=== PATIENT | female | born 1945 | race Caucasian/White ===

== ENCOUNTER → 2016-05-29 | Outpatient (CLI) | payer OTHER | LOC: FIMAGING 13:45 | PROVIDERS: ATTEND Internal Medicine | DX: R93.8 Abnormal findings on diagnostic imaging of other specified body structures (principal); I70.0 Atherosclerosis of aorta; I25.10 Atherosclerotic heart disease of native coronary artery without angina pectoris ==

== ENCOUNTER → 2016-06-18 | Outpatient (CLI) | payer OTHER | LOC: FIMAGING 12:06 | DX: Z12.31 Encounter for screening mammogram for malignant neoplasm of breast (principal) | CPT/HCPCS: G0202 ==

== ENCOUNTER → 2016-12-06 | Outpatient (CLI) | payer OTHER | LOC: FIMAGING 14:49 | PROVIDERS: ATTEND Orthopaedic Surgery | DX: M19.011 Primary osteoarthritis, right shoulder (principal); M19.012 Primary osteoarthritis, left shoulder; M24.011 Loose body in right shoulder ==

== ENCOUNTER 2017-01-14 11:01 | Day surgery (SDC) | payer OTHER ==
[~2017-01-14 11:01] MED LIST: CLINDAMYCIN 900 MG/DEXTROSE 50 ML IV ONE
[2017-01-14] MEDS ORDERED: LR 1,000 ML IV ONE (11:06)
[2017-01-14] MEDS ORDERED: LIDOCAINE 1% 2 ML INJ ID PRN (11:06)
[2017-01-14] MEDS ORDERED: BUPIVACAINE 0.5% 30 ML SDV ONE (11:54)
[2017-01-14] MEDS ORDERED: fentaNYL 100 MCG/2 ML INJ ONE ×2 (11:54→12:46)
[2017-01-14] MEDS ORDERED: CLINDAMYCIN 600 MG/DEXTROSE/50 ML BAG IV ONE (11:59)
[2017-01-14] MEDS ORDERED: ROPIVACAINE HCL 20 MG/10 ML INJ EP ONE (11:59)
[2017-01-14] MEDS ORDERED: CLINDAMYCIN 900 MG/DEXTROSE/50 ML BAG IV ONE (12:00)
--- NOTE | 2017-01-14 12:02 | PDANEPAE ---
ANE History of Present Illness L shoulder OA ANE Past Medical History - Cardiovascular History Hx Hypertension: No Hx Arrhythmias: No Hx Chest Pain: No Hx Coronary Artery / Peripheral Vascular Disease: No Hx CHF / Valvular Disease: No Hx Palpitations: No - Pulmonary History Hx COPD: No Hx Asthma/Reactive Airway Disease: No Hx Recent Upper Respiratory Infection: No Hx Oxygen in Use at Home: No Hx Sleep Apnea: No Sleep Apnea Screening Result - Last Documented: Negative Pulmonary History Comment: prev use of O2 following proc in 2010 - Neurologic History Hx Cerebrovascular Accident: No Hx Seizures: No Hx Dementia: No - Endocrine History Hx Diabetes: No - Renal History Hx Renal Disorders: No - Liver History Hx Hepatic Disorders: No - Neurological & Psychiatric Hx Hx Neurological and Psychiatric Disorders: Yes Neurological / Psychiatric History Comment: sciatica - Cancer History Hx Cancer: Yes Cancer History Comment: endometrial - Congenital Disorder History Hx Congenital Disorders: No - GI History Hx Gastrointestinal Disorders: Yes Gastrointestinal History Comment: ibs - Other Health History Other Health History: bruises easily - Chronic Pain History Chronic Pain: Yes (bila sciatic nerve pain) - Surgical History Prior Surgeries: hysterectomy 2010 ANE Review of Systems Review of Systems: - Exercise capacity Exercise capacity: >=4 METS METS (RN): 4 METS - Systems Gastrointestinal: Reports: vomitting (current gastritis) Neurological: Reports: paresthesia (bilateral hand numbness) ANE Patient History - Allergies Allergies/Adverse Reactions: butalbital [From Fiorinal] Allergy (Intermediate, Verified 11/28/10 11:06) ELEVATED B/P/ "DRUNK FEELING" caffeine [From Fiorinal] Allergy (Intermediate, Verified 11/28/10 11:06) ELEVATED B/P/ "DRUNK FEELING" olive oil [[place] Oil] Allergy (Intermediate, Verified 11/28/10 11:06) Diarrhea amoxicillin Allergy (Mild, Verified 01/02/17 12:41) Hives ciprofloxacin [From Cipro] Allergy (Mild, Verified 12/31/16 19:07) Hives ciprofloxacin HCl [From Cipro] Allergy (Mild, Verified 12/31/16 19:07) Hives Penicillins Allergy (Unknown, Verified 12/31/16 19:08) Hives atorvastatin Allergy (Verified 12/31/16 19:08) Other-Enter Comments simvastatin [From Zocor] Allergy (Verified 12/31/16 19:07) Other-Enter Comments COOKED TOMATOES Allergy (Intermediate, Uncoded 11/28/10 11:06) Diarrhea ENVIRONMENTAL Allergy (Intermediate, Uncoded 11/28/10 11:06) RUNNY NOSE/NASAL CONGESTION BANDAGES Allergy (Mild, Uncoded 11/28/10 11:06) Rash - Home Medications Home Medications: Acetaminophen [Tylenol ES 500 mg (*)] 500 mg PO Q4H 12/31/16 [Last Taken ] Ascorbic Acid [Vitamin C 500 mg (*)] 500 mg PO HS 12/31/16 [Last Taken 01/07/17] Aspirin [Aspirin 81mg (*)] 81 mg PO DAILY 12/31/16 [Last Taken 01/07/17] Cholecalciferol (Vitamin D3) [Vitamin D3] 7 drops PO Q7D 12/31/16 [Last Taken ] Cyanocobalamin [Vitamin B12 (*)] 1,000 mcg PO Q7D 12/31/16 [Last Taken 01/05/17] Estradiol [Estradiol 0.5 MG (RX)] 0.25 mg PO DAILY 12/31/16 [Last Taken 01/14/17 ] FEXOFENADINE HCL 180 mg PO BID 12/31/16 [Last Taken 01/13/17] Gluc Stevens/Chondro Stevens A/Vit C/Mn [Glucosamine 1,500 Complex Cap] 1 each PO BID [Last Taken 01/07/17] Herbals/Supplements -Info Only 1 ea PO DAILY 12/31/16 [Last Taken 01/07/17] Ibuprofen [Motrin (*)] 200 mg PO Q4H 12/31/16 [Last Taken 01/07/17] Multivitamins [Multivitamin (*)] 0.5 each PO BID 12/31/16 [Last Taken 01/07/17] Naproxen Sodium [Aleve 220 MG (*)] 220 mg PO DAILY PRN 12/31/16 [Last Taken 08/18] [place]-3 Fatty Acids [Fish Oil 1000 mg (*)] 2,000 mg PO BID 12/31/16 [Last Taken 01/07/17] Vitamin E Acetate [VITAMIN E] 400 unit PO BID 12/31/16 [Last Taken 01/07/17] - NPO status NPO Status: no food or drink >8 hours - Anes Hx Anes Hx: no prior problems - Smoking Hx Smoking Status: Former smoker - Alcohol Use Alcohol Use: None - Family Anes Hx Family Hx Anesthesia Complications: none ANE Labs/Vital Signs - Vital Signs Vital Signs: reviewed preoperatively; see RN documention for details Height: 149.86 cm Weight: 55.338 kg ANE Physical Exam - Airway Mallampati Score: Class 2 - Pulmonary Pulmonary: no respiratory distress - Cardiovascular Cardiovascular: regular rate and rhythym - ASA Status ASA Status: II ANE Anesthesia Plan Anesthesia Plan: general endotracheal anesthesia Regional Anesthesia: interscalene BP NB
--- NOTE | 2017-01-14 12:20 | PDGENHP ---
History and Physical History and Physical: see chart notes/office notes L shoulder end stage OA CTAB RRR L shoulder identified at bedside IS block IS catheter requested at bedside Plan for total shoulder Left. RBEA. consented. Dr Day
[2017-01-14] MEDS ORDERED: MIDAZOLAM 2 MG/2 ML VIAL ONE (12:31)
[2017-01-14] MEDS ORDERED: MIDAZOLAM 2 MG/2 ML VIAL IVP ONE (12:42)
[2017-01-14] MEDS ORDERED: PROPOFOL 200 MG/20 ML VIAL ONE (12:46)
[2017-01-14] MEDS ORDERED: fentaNYL 100 MCG/2 ML INJ IVP PRN (14:59)
[2017-01-14] MEDS ORDERED: NALOXONE HCL 0.4 MG/ML INJ IVP PRN (14:59)
[2017-01-14] MEDS ORDERED: ALBUTEROL 3 ML DEYVIAL IH PRN (14:59)
[2017-01-14] MEDS ORDERED: HYDROmorphONE/DILAUDID 1 MG/ML INJ IVP PRN (14:59)
[2017-01-14] MEDS ORDERED: ROPIVACAINE 0.2% 1,100 MG in PUMP SET 1 EA NB SCH (15:00)
[2017-01-14] MEDS ORDERED: SUGAMMADEX SODIUM 200 MG/2 ML VIAL IVP ONE (15:07)
[2017-01-14] MEDS ORDERED: ONDANSETRON 4 MG/2 ML VIAL ONE (15:07)
--- NOTE | 2017-01-14 15:32 | POSTOPPROG ---
Post Op Note Date of Operation: 01/14/17 Surgeon: Caesar Woodard Anesthesia: GET(General Endotracheal) Pre-op Diagnosis: left shoulder arthritis Post-op Diagnosis: left shoulder arthritis Indication: pain Procedure: left total shoulder arthroplasty Findings: left shoulder arthritis Inf/Abcess present in the surg proc area at time of surgery?: No EBL: 50-100 (100) Complications: none
[2017-01-14] MEDS ORDERED: ACETAMINOPHEN 325 MG TAB PO PRN (15:46)
[2017-01-14] MEDS ORDERED: ONDANSETRON 4 MG/2 ML VIAL IVP PRN (15:46)
[2017-01-14] MEDS ORDERED: OXYCODONE/APAP 5/325 TAB PO PRN (15:46)
[2017-01-14] MEDS ORDERED: HYDROCODONE/APAP 5/325 TAB PO PRN (15:46)
[2017-01-14 15:54] VITALS: TEMP 98.2
[2017-01-14 17:17] VITALS: PULSE 95; RESP 14
--- NOTE | 2017-01-14 19:37 | PDFACE2FAC ---
Face to Face Encounter 1. I certify that this patient is under my care and that I, or a nurse practitioner or physician's assistant executive housekeeper working with me, had a [id number] encounter that meets the physician [id number]-hl-rcep encounter requirements with this patient on 01/14/17. 2. I certify that based on my findings, the following services are medically necessary home health services: Home Oxygen therapy 3. The medical condition and clinical findings that support the need for specialized skills, knowledge and judgement of the above services are: [hypoxia] 4. I certify this patient is homebound* because [the patient's condition restricts their ability to leave their home except with the assistance of another individual or the aid of a supportive device.] John Randle MD I certify that this patient is confined to his/her home and needs intermittent snf care, physical and/or speech therapy. This patient is under my care and I have authorized home health services. * Homebound is defined by Medicare as follows: absences from home require considerable and tacking effort and or for medical reasons or restorationism services or are infrequent or of short duration when for other reasons*.
--- NOTE | 2017-01-14 19:41 | PDHOMEO2F ---
Home Oxygen Face to Face Home Orders: I certify that a physician or a nurse practitioner or physician's assistant sales center manager has had a [id number] encounter with this patient on the date of this order due to the diagnosis listed, which relates to the primary reason the patient requires home oxygen. Alternative treatments have been tried, or considered, and deemed ineffective. It is anticipated that supplemental oxygen will result in improvement with treatment. 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 Length of time home oxygen needed: 1 week
[2017-01-14] MEDS ORDERED: DOCUSATE SODIUM 100 MG CAP PO SCH (21:00)
[2017-01-14 21:42] VITALS: BP 138/94
[2017-01-14 22:41] VITALS: O2SAT 95
--- NOTE | 2017-01-15 05:09 | GOP ---
[f rep st] OPERATIVE REPORT DATE OF OPERATION: 01/14/2017 SURGEON: Kathy Day MD PREOPERATIVE DIAGNOSIS: Left shoulder osteoarthritis. POSTOPERATIVE DIAGNOSIS: 1. Left shoulder osteoarthritis. 2. Loose body. 3. Biceps tendinopathy. PROCEDURE PERFORMED: 1. Open left total shoulder replacement. 2. Open loose body removal. 3. Subpectoral biceps or open biceps tenodesis. FINDINGS: ESTIMATED BLOOD LOSS: Minimal. Total surgical time was 2 hours. INDICATIONS: The patient is a 71-year-old female with end-stage left shoulder osteoarthritis. Cuff intact. Large goat's monroe osteophyte loose body in the subscap recess. Patient elects for operativ e intervention after failing conservative management for end-stage arthritis of the left shoulder. The patient was identified in the preoperative holding area. Consent, laterality and preoperative an tibiotics were confirmed delivered. All questions were answered. Her significant other was at the [facility]. Interscalene block and catheter was placed. Interscalene catheter was placed by Anesthesia. Patient brought into the operating room. General anesthesia. A semi lazy beach chair position. All extremities well padded. 30 degree head of bed. The left upper extremity was prepped and draped in usual sterile fashion. Ioban draping. Standard deltopectoral approach. Coracoid to the humeral sh aft. Cephalic vein was found medially. This was retracted laterally. The conjoined tendon was iden tified on the coracoid. The subdeltoid adhesions were taken down. The rotator cuff looked intact. There was a large thickening of the tenosynovium of the biceps groove. We excised this. We found th e biceps. We did a 1 cm Flores release. We tenodesed the biceps to the remainder of the Flores tendon. We did a biceps tenotomy. We found the lesser tuberosity. She had a nice healthy subscap. We palp ated the axillary nerve underneath the subscapularis. We did a lesser tuberosity osteotomy. We free d up the capsule in the subscap. With progressive external rotation, we delivered the humeral head e nface. We debrided a large goat's monroe osteophyte. A large 1 cm loose body popped free as we were doing this. We removed this. We found the anatomic neck. We preserved the rotator cuff with lulu Tate. Did a freehand osteotomy of the humeral head at about 135 degrees. We treated the swathi l side. We used a rongeur central canal finer, reamed up to a 6. She was fairly small and then had broached up to 6 and placed a humeral head protector. The arm was taken out of the [place] arm hol luz and placed on a padded Walker. We used a Fukuda retractor. Completed the inferior and posterior c apsular releases. Placed a Bankart retractor did a complete labrectomy. The glenoid looked fairly s mall. We had a Darach retractor to protect the axillary nerve. We placed a center pin guide hole. Over-reamed with a central hole. I placed a guide. The bone was very healthy superiorly, and anteri tara and posteriorly it was a little soft. We did use a punch. Trialed with a small glenoid. There was a small glenoid posterior inferior rim fracture off the posterior aspect of the lower smiley fac e, but it looked stable on the inferior cortical margin. We trialed. It remained a stable fracture. We thought that this 1-2 mm propagation would be okay with the cement as 90% of the posterior gleno id looked intact at the mid portion and superior portion. We cemented in the real. Bone grafted the central PEG hole. It was nice and stable. Prior to preparing the glenoid, we did ream to a flat gl enoid with a small glenoid reamer. We then placed the arm in a [place] gale. Deliver the humeral head. The osteotomy looked fresh. We placed 2 drill holes in the bicipital groove. We passed sutures through these, the lateral port ion and we had 4 medial sutures. We passed the horizontal mattress stitches through the subscapulari s and did an Arthrex subscap technique for mattress stitches. We tied off the tops, tied off the bot toms, tied off crisscross and then tied medially. The arm was placed in neutral, had about 40% to 50 % posterior Shuck, well centralized with equal excursion. We placed 2 edcdju-bi-awuqc stitches in th e rotator interval. #2 FiberWire. The wound was copiously washed out with 500 cc of warm normal greta ine. We used a running PDS 2-0, PDS 3-0, Monocryl, and then a 3-0 Prolene. Mastisol, Steri-Strips, Xeroform, and Mepilex dressing applied. Sling applied. DESCRIPTION OF PROCEDURE: CRIMINAL JUDGE: Caesar Woodard PA-C, medically required for positioning of the arm during op en total shoulder and careful retraction of vital neurovascular structures. COMPLICATIONS: None. DISPOSITION: To PACU in stable condition. /[id number]/MODL
== END 2017-01-14 21:30 | disposition home or self-care (01) ==
LOC: F3N 11:01 → FSGY 11:01 → UNDOADMIN 11:01 → EDSTATUS 12:30 → FSGY 21:30
PROVIDERS: ATTEND Orthopaedic Surgery
PROC: 0RRK0J7 Replacement of Left Shoulder Joint with Synthetic Substitute, Glenoid Surface, Open Approach (ICD-10-PCS; principal; 2017-01-14 12:30)
DX: M19.012 Primary osteoarthritis, left shoulder (principal); M24.012 Loose body in left shoulder; M75.22 Bicipital tendinitis, left shoulder
CPT/HCPCS: C1713; J0171; J2250; J2405; J2704; J2795; J3010

== ENCOUNTER → 2017-07-09 | Outpatient (CLI) | payer OTHER | LOC: FIMAGING 13:30 | PROVIDERS: ATTEND Internal Medicine | DX: Z12.31 Encounter for screening mammogram for malignant neoplasm of breast (principal); Z80.3 Family history of malignant neoplasm of breast ==

== ENCOUNTER → 2017-08-12 | Outpatient (CLI) | payer OTHER | LOC: FIMAGING 11:58 | PROVIDERS: ATTEND Internal Medicine | DX: M25.551 Pain in right hip (principal) ==

== ENCOUNTER 2017-09-09 08:15 | Day surgery (SDC) | payer OTHER ==
--- NOTE | 2017-09-08 18:11 | PDGENHP ---
History & Physical Chief Complaint: right shoulder pain History of Present Illness: 72 yo female, presenting today for Right total shoulder arthroplasty and biceps tenodesis by dr. del rio for right shoulder pain and arthritis Pertinent Past, Social, Family History: Allergies: butabital, caffeine, olive oil, amoxicillin, cipro, fiorinal, simvastatin, atorvastatin. meds: estradiol. soc: former smoker, occasional etoh, denies rec drug,. PMH: cancer, arthritis Relevant Physical Exam: 90 deg ff w/ crepitation. 80 deg abduction. no ER lag. strong empty can Assessment & Plan Assessment: 72 yo female with right shoulder pain and arthritis, presenting today for right total shoulder arthroplasty by dr. del rio Plan: right total shoulder arthroplasty
[2017-09-09] MEDS ORDERED: CLINDAMYCIN 900 MG/DEXTROSE 50 ML IV ONE ×3 (08:25→18:00)
[2017-09-09] MEDS ORDERED: LR 1,000 ML IV SCH (08:25)
[2017-09-09] MEDS ORDERED: LIDOCAINE 1% 2 ML INJ ID PRN (09:06)
[2017-09-09] MEDS ORDERED: LIDOCAINE 1% 2 ML INJ ONE (09:07)
[2017-09-09] MEDS ORDERED: ROPIVACAINE HCL 20 MG/10 ML INJ EP ONE (09:13)
[2017-09-09] MEDS ORDERED: EPINEPHrine 1 MG/ML INJ ONE (09:14)
[2017-09-09] MEDS ORDERED: BUPIVACAINE/EPI 0.5% 30 ML SDV ONE (09:43)
[2017-09-09] MEDS ORDERED: fentaNYL 100 MCG/2 ML INJ ONE ×2 (09:56→13:00)
[2017-09-09] MEDS ORDERED: MIDAZOLAM 2 MG/2 ML VIAL ONE (09:57)
[2017-09-09] MEDS ORDERED: PROPOFOL/EMULSION 500 MG/50 ML BOTTLE IV ONE (10:26)
[2017-09-09] MEDS ORDERED: PHENYLEPHRINE HCL 100 MCG/ML SYR ONE (10:39)
[2017-09-09] MEDS ORDERED: ONDANSETRON 4 MG/2 ML VIAL ONE ×2 (10:47→13:58)
[2017-09-09] MEDS ORDERED: DEXAMETHASONE 4 MG/ML VIAL ONE ×2 (10:47)
[2017-09-09] MEDS ORDERED: fentaNYL 100 MCG/2 ML INJ IVP PRN (10:55)
[2017-09-09] MEDS ORDERED: HYDROmorphONE/DILAUDID 1 MG/ML INJ IVP PRN (10:55)
[2017-09-09] MEDS ORDERED: ONDANSETRON 4 MG/2 ML VIAL IVP PRN ×2 (10:55→13:29)
[2017-09-09] MEDS ORDERED: DEXAMETHASONE 4 MG/ML VIAL IVP PRN (10:55)
[2017-09-09] MEDS ORDERED: ALBUTEROL 3 ML DEYVIAL IH PRN (10:55)
[2017-09-09] MEDS ORDERED: PROMETHAZINE HCL 25 MG/ML INJ IVP PRN ×2 (10:55→13:29)
[2017-09-09] MEDS ORDERED: DIAZEPAM 5 MG/ML 1 ML SYR IVP PRN (10:55)
[2017-09-09] MEDS ORDERED: NALOXONE HCL 0.4 MG/ML INJ IVP PRN (10:55)
--- NOTE | 2017-09-09 10:55 | PDANEPAE ---
ANE History of Present Illness here for L Total shoulder ANE Past Medical History - Cardiovascular History Hx Hypertension: No Hx Arrhythmias: No Hx Chest Pain: No Hx Coronary Artery / Peripheral Vascular Disease: No Hx CHF / Valvular Disease: No Hx Palpitations: No - Pulmonary History Hx COPD: No Hx Asthma/Reactive Airway Disease: No Hx Recent Upper Respiratory Infection: No Hx Oxygen in Use at Home: No Hx Sleep Apnea: No Sleep Apnea Screening Result - Last Documented: Negative Pulmonary History Comment: prev use of O2 following proc in 2010 - Neurologic History Hx Cerebrovascular Accident: No Hx Seizures: No Hx Dementia: No - Endocrine History Hx Diabetes: No - Renal History Hx Renal Disorders: No - Liver History Hx Hepatic Disorders: No - Neurological & Psychiatric Hx Hx Neurological and Psychiatric Disorders: No Neurological / Psychiatric History Comment: sciatica - Cancer History Hx Cancer: Yes Cancer History Comment: endometrial - Congenital Disorder History Hx Congenital Disorders: No - GI History Hx Gastrointestinal Disorders: Yes Gastrointestinal History Comment: ibs. ABDOMINAL WALL HERNIA - Other Health History Other Health History: RT HIP PAIN - Chronic Pain History Chronic Pain: Yes (RT SHLDR) - Surgical History Prior Surgeries: LT TOTAL SHLDR ///2017. hysterectomy. REMVL UTERINE POLYP. TONSILLECTOMY ANE Review of Systems Review of Systems: - Exercise capacity METS (RN): 4 METS ANE Patient History - Allergies Allergies/Adverse Reactions: butalbital [From Fiorinal] Allergy (Intermediate, Verified 11/28/10 11:06) ELEVATED B/P/ "DRUNK FEELING" caffeine [From Fiorinal] Allergy (Intermediate, Verified 11/28/10 11:06) ELEVATED B/P/ "DRUNK FEELING" olive oil [[place] Oil] Allergy (Intermediate, Verified 11/28/10 11:06) Diarrhea amoxicillin Allergy (Mild, Verified 01/02/17 12:41) Hives ciprofloxacin [From Cipro] Allergy (Mild, Verified 12/31/16 19:07) Hives ciprofloxacin HCl [From Cipro] Allergy (Mild, Verified 12/31/16 19:07) Hives Penicillins Allergy (Unknown, Verified 12/31/16 19:08) Hives atorvastatin Allergy (Verified 12/31/16 19:08) Other-Enter Comments simvastatin [From Zocor] Allergy (Verified 12/31/16 19:07) Other-Enter Comments COOKED TOMATOES Allergy (Intermediate, Uncoded 11/28/10 11:06) Diarrhea ENVIRONMENTAL Allergy (Intermediate, Uncoded 11/28/10 11:06) RUNNY NOSE/NASAL CONGESTION BANDAGES Allergy (Mild, Uncoded 11/28/10 11:06) Rash - Home Medications Home Medications: Acetaminophen [Tylenol ES 500 mg (*)] 500 mg PO Q4H 12/31/16 [Last Taken 1 Week Ago ~09/02/17] Ascorbic Acid [Vitamin C 500 mg (*)] 500 mg PO HS 12/31/16 [Last Taken 1 Week Ago ~09/02/17] Aspirin [Aspirin 81mg (*)] 81 mg PO DAILY 12/31/16 [Last Taken 1 Week Ago ~09/02] Cholecalciferol (Vitamin D3) [Vitamin D3] 7 drops PO Q7D 12/31/16 [Last Taken 1 Week Ago ~09/02/17] Cyanocobalamin [Vitamin B12 (*)] 1,000 mcg PO Q7D 12/31/16 [Last Taken 1 Week Ago ~09/02/17] Estradiol [Estradiol 0.5 MG (RX)] 0.25 mg PO DAILY 12/31/16 [Last Taken 06:00] FEXOFENADINE HCL 180 mg PO BID 12/31/16 [Last Taken 09/09/17 06:00] Gluc Stevens/Chondro Stevens A/Vit C/Mn [Glucosamine 1,500 Complex Cap] 1 each PO BID [Last Taken 1 Week Ago ~09/02/17] Herbals/Supplements -Info Only 1 ea PO DAILY 12/31/16 [Last Taken 1 Week Ago ~] Ibuprofen [Motrin (*)] 200 mg PO Q4H 12/31/16 [Last Taken 1 Week Ago ~09/02/17] Multivitamins [Multivitamin (*)] 0.5 each PO BID 12/31/16 [Last Taken 1 Week Ago ~09/02/17] Naproxen Sodium [Aleve 220 MG (*)] 220 mg PO DAILY PRN 12/31/16 [Last Taken 1 Week Ago ~09/02/17] [place]-3 Fatty Acids [Fish Oil 1000 mg (*)] 2,000 mg PO BID 12/31/16 [Last Taken 1 Week Ago ~09/02/17] Vitamin E Acetate [VITAMIN E] 400 unit PO BID 12/31/16 [Last Taken 1 Week Ago ~ 09/02/17] - NPO status NPO Since - Liquids (Date): 09/08/17 NPO Since - Liquids (Time): 22:00 NPO Since - Solids (Date): 09/08/17 NPO Since - Solids (Time): 21:00 - Smoking Hx Smoking Status: Former smoker - Family Anes Hx Family Hx Anesthesia Complications: none ANE Labs/Vital Signs - Vital Signs Blood Pressure: 158/110 Heart Rate: 83 Respiratory Rate: 18 O2 Sat (%): 94 Height: 149.86 cm Weight: 57.606 kg ANE Physical Exam - Airway Neck exam: FROM Mallampati Score: Class 1 - Pulmonary Pulmonary: no respiratory distress - Cardiovascular Cardiovascular: regular rate and rhythym - ASA Status ASA Status: II ANE Anesthesia Plan Anesthesia Plan: general endotracheal anesthesia Regional Anesthesia: continuous NB, interscalene BP NB Urgent/Emergent Case: Nalini sanz completed preop but documented later for safe timely pt care
[2017-09-09] MEDS ORDERED: SUGAMMADEX SODIUM 200 MG/2 ML VIAL IVP ONE (12:58)
[2017-09-09] MEDS ORDERED: ROPIVACAINE 0.2% 1,100 MG in PUMP SET 1 EA NB ONE (13:00)
[2017-09-09] MEDS ORDERED: ACETAMINOPHEN 325 MG TAB PO PRN (13:29)
[2017-09-09] MEDS ORDERED: ONDANSETRON DISINTEGRATING 4 MG TAB PO PRN (13:29)
[2017-09-09] MEDS ORDERED: oxyCODONE IR 5 MG TAB PO PRN (13:29)
--- NOTE | 2017-09-09 13:29 | POSTOPPROG ---
Post Op Note Date of Operation: 09/09/17 Surgeon: Kathy Day Senior Electrical Design Engineer: Karen MURPHY pa-C Anesthesia: GET(General Endotracheal) Pre-op Diagnosis: right shoulder pain & OA Post-op Diagnosis: right shoulder pain & OA Procedure: right total shoulder arthroplasty Inf/Abcess present in the surg proc area at time of surgery?: No Complications: none
--- NOTE | 2017-09-09 13:48 | POSTANESTH ---
Post Anesthetic Evaluation Cardiovascular Status: Normal, Stable Respiratory Status: Normal, Stable Level of Consciousness/Mental Status: Can Participate in Eval Pain Control: Adequate, Prn Tx Ordered Nausea/Vomiting Control: Adequate, Prn Tx Ordered Complications Possibly Related to Anesthesia: None Noted
--- NOTE | 2017-09-09 14:39 | GOP ---
[f rep st] OPERATIVE REPORT DATE OF OPERATION: 09/09/2017 SURGEON: Kathy Day MD YARD SUPERVISOR: Caesar Woodard PA-C. Medically required for positioning of the arm during open total shoulder and careful retraction of vital neurovascular structures. PREOPERATIVE DIAGNOSIS: End-stage right shoulder osteoarthritis. POSTOPERATIVE DIAGNOSIS: End-stage right shoulder osteoarthritis. PROCEDURE PERFORMED: 1. Open right total shoulder arthroplasty. 2. Open biceps tenodesis. 3. Open loose body removal 5 x 10 mm. FINDINGS: ESTIMATED BLOOD LOSS: 300 cc. INDICATIONS: 72-year-old female who underwent a left total shoulder by myself and did very well. Sh candace presents for the right side. Clinical radiographic and advanced imaging show end-stage osteoarthri tis with intact rotator cuff. MRSA scan was negative. DESCRIPTION OF PROCEDURE: Patient identified in the preoperative holding area. Consent, laterality and preoperative antibiotics were confirmed and delivered. All questions were answered. Her was at the bedside. The right shoulder was identified. The left shoulder scar was visualized to po tentially match the right shoulder scar anterior. The patient was brought into the operating room. Interscalene block with catheter. A semi-lazy beac h chair position on the OR table. All extremities well padded. The right upper extremity was preppe d and draped in sterile fashion. Surgical time-out was performed. Ioban draping. A standard deltop ectoral incision from the coracoid down to the humerus. Cephalic vein was robust, taken with the del toid. The conjoined tendon was identified. The subscap was identified. We freed up the subdeltoid adhesions. We identified the axillary nerve by finger palpation. We marked the 3 sisters inferiorly as the inferior border of the subscap. We found the biceps groove. Tenodesed the biceps to the pec toralis tendon laterally. We did about a centimeter Flores release. We did a biceps tenodesis. Then, in the proximal portion of the biceps we excised. We marked the bicipital groove as this was going to be an area for the subscap repair. We did a lesser tuberosity osteotomy and progressive external rotation, released the inferior capsule and labrum while protecting the axillary nerve. With ___ duction, extension of the arm and about 30 degrees of external rotation, we were able to deliver the head into the wound. We put a blunt Hohmann above and below. We finished off the capsulotomy wi th protection of the axillary nerve. We found the anatomic head. She had a lot of flattening of the head. It was slightly varus. We removed all the osteophytes. We had excellent exposure of the rot ator cuff and posterior humeral head. We did a freehand cut osteotomy at about 135 degrees. The hum eral osteotomy measured about 15 mm in offset in depth and then 55 mm in circumference. It was sligh tly irregularly shaped. About a cm just right off the bicipital groove we found the canal. We used a rongeur and a central canal finder. Going off what her other shoulder was, she was a fairly small canal. Thus, we hand reamed to a 6 and then broached up to a 6 and we had a nice fit and fill. We w ent ahead and took the arm out of the Frazier and placed the arm on a padded Walker for the glenoid. We completed the inferior capsulotomy and posterior capsulotomy. We had nice delivery of the glenoi d. We put a Bankart retractor in front. We did have a complete labrectomy and the remainder of the biceps was excised. We marked the center-center position of the glenoid. Then we used a cannulated system and Nautilus reamers to a small. We did ream this flat with a slight bias so that we could ta ke some retroversion about 10 degrees off. We went ahead and prepared the holes. We had a superior hole, middle hole, and then the smiley face inferiorly. The bone was fairly hard. We took our time with the smiley face in punching sequentially with the freehand smiley face broach and the center peg smiley face broaches. We washed the wound with 500 cc of warm normal saline. Used epi-soaked spong es to control the bleeding, as we did not have too much bleeding. We cemented the top and bottom hol es and bone grafted the middle hole. We placed the small glenoid implant. Had a nice fit and fill. We then re-dislocated the humeral head back into the Frazier gale and re-broached it with a 6, a nd made sure that we were on the confluence line at the osteotomy. We drilled 2 holes in the bicipit al groove, passed sutures from the lateral aspect of the implant, and impacted the implant. We were sitting above 3-4 mm proud with the osteotomy cut inferiorly, but matched it superiorly and we had a nice fit and fill of the implant and thus thought it was stable. We did trial with a few eccentric a nd concentric heads, and actually the concentric head worked the best with good, about 40%, shuck pos teriorly and no serious overhang posteriorly or anteriorly to impinge on the subscapularis. We chose a 45 x 15 humeral head, concentric. We took the arm to about 20 degrees of external rotation, neutral adduction. We did the Arthrex subs capularis repair with the top sutures tied, bottom sutures tied, crisscross, and then the medial sutu res tied. We did 2 sutures in [id number] in the rotator interval. With 30 degrees internal ro tation and 30 degrees external rotation, we had a nice subscap repair. We did deep subcutaneous clos ure with 2-0 PDS, superficial with 3-0 Monocryl and 3-0 Prolene. Mastisol, Steri-Strips used. 20 cc of 0.2% ropivacaine were injected throughout the incision. A Mepilex waterproof dressing was applie d. SURGEON: Kathy Day MD IMPLANTS USED: 1. An Arthrex #6 stem. 2. A 45/15 humeral head, concentric. 3. A VaultLock Arthrex glenoid, small. COMPLICATIONS: None. DISPOSITION: Extubated, to the PACU in stable condition. /[id number]/MODL
--- NOTE | 2017-09-09 14:43 | PDHOMEO2F ---
Home Oxygen Face to Face Home Orders: I certify that a physician or a nurse practitioner or physician's assignment desk assistant has had a [id number] encounter with this patient on the date of this order due to the diagnosis listed, which relates to the primary reason the patient requires home oxygen. Alternative treatments have been tried, or considered, and deemed ineffective. It is anticipated that supplemental oxygen will result in improvement with treatment. Home oxygen qualifying diagnosis: post operative hypoxia SpO2 on room air (%): 88 Frequency of home oxygen needed: continuous Home oxygen liters per minute: 2 Home oxygen delivery device: nasal cannula Concentrator: Yes E-tanks for mobility and back up: Yes If ordering portable O2, is the patient mobile in the home?: Yes I certify that, based on these findings, the home oxygen is medically necessary for this patient for the following length of time. Length of time home oxygen needed: 1 week
[2017-09-09 17:54] VITALS: BP 150/86
== END 2017-09-09 17:50 | disposition home or self-care (01) ==
LOC: FSGY 08:15
PROVIDERS: ATTEND Orthopaedic Surgery
PROC: 0RRJ0JZ Replacement of Right Shoulder Joint with Synthetic Substitute, Open Approach (ICD-10-PCS; principal; 2017-09-09 10:00)
DX: M19.011 Primary osteoarthritis, right shoulder (principal); M24.011 Loose body in right shoulder
CPT/HCPCS: C1713; J0171; J1100; J2250; J2370; J2405; J2704; J2795; J3010

== ENCOUNTER → 2018-07-10 | Outpatient (CLI) | payer OTHER | LOC: FIMAGING 11:24 | PROVIDERS: ATTEND Internal Medicine | DX: Z12.31 Encounter for screening mammogram for malignant neoplasm of breast (principal) ==